=== PATIENT | female | born 1970 | race American Indian/Alaskan Native ===

== ENCOUNTER 2020-10-06 04:25 | Day surgery (SDC) | payer BC ==
[2020-10-04 14:17] VITALS: BMI 19.7
[2020-10-06] MEDS ORDERED: MIDAZOLAM HCL 2 MG/2 ML SINGLE DOSE VIAL ONE (14:30)
[2020-10-06] MEDS ORDERED: PROPOFOL 20 ML ONE (14:34)
[2020-10-06] MEDS ORDERED: SUCCINYLCHOLINE CHLORIDE 200 MG/10 ML SYRINGE ONE (14:34)
[2020-10-06] MEDS ORDERED: ceFAZolin SODIUM 1 GM VIAL IVPB ONE (14:48)
[2020-10-06] MEDS ORDERED: IBUPROFEN 400 MG TABLET (FP) PO PRN (15:27)
[2020-10-06] MEDS ORDERED: ACETAMINOPHEN 325 MG TABLET (FP) PO PRN (15:27)
[2020-10-06] MEDS ORDERED: oxyCODONE HCL 5 MG TABLET PO PRN ×2 (15:27→15:41)
[2020-10-06] MEDS ORDERED: LACTATED RINGERS SOLUTION 1,000 ML IV SCH (15:30)
[2020-10-06] MEDS ORDERED: ONDANSETRON 4 MG/2 ML VIAL IVPUSH PRN (15:41)
[2020-10-06] MEDS ORDERED: IBUPROFEN 400 MG TABLET (FP) PO ONE ×2 (17:23→17:24)
[2020-10-06 18:19] VITALS: BP 145/78; PULSE 90; TEMP 97.8
== END 2020-10-06 18:52 | disposition home or self-care (01) ==
LOC: JASUSAT 04:25
PROVIDERS: ATTEND Obstetrics & Gynecology
PROC: 0UB97ZZ Excision of Uterus, Via Natural or Artificial Opening (ICD-10-PCS; principal; 2020-10-06 14:00)
DX: D25.9 Leiomyoma of uterus, unspecified (principal)
CPT/HCPCS: 88305-TC; 94760